=== PATIENT | male | born 1995 | race Caucasian/White ===

== ENCOUNTER 2020-08-14 20:05 | Emergency (ER) | payer MEDICAID, OTHER ==
[~2020-08-14] VITALS: Ht 182.9 cm; Wt 118.2 kg
[2020-08-14 20:07] VITALS: BP 181/94
[2020-08-14] MEDS ORDERED: LISI20TA28 PO (21:33)
[2020-08-14] MEDS ORDERED: HYDR25TA5 PO (21:34)
== END 2020-08-14 21:59 | disposition home or self-care (01) ==
LOC: ER 20:06
DX: S93.401A Sprain of unspecified ligament of right ankle, initial encounter (principal); M25.571 Pain in right ankle and joints of right foot; I10 Essential (primary) hypertension; W19.XXXA Unspecified fall, initial encounter; Y93.89 Activity, other specified; Y92.89 Other specified places as the place of occurrence of the external cause; Y99.8 Other external cause status
CPT/HCPCS: 29515; 73590; 73610; 99284